=== PATIENT | male | born 1965 | race Hispanic/Latino ===

== ENCOUNTER 2018-05-24 12:00 | Inpatient (IN) | payer BC ==
[~2018-05-24] VITALS: Ht 179.1 cm; Wt 83.6 kg
[2018-05-24 10:21] LABS: BASOPHILS % (AUTO) 0.7 % (0.0-5.0); EOSINOPHILS % (AUTO) 1.2 % (0.0-8.0); HEMATOCRIT 44.2 % (42-54); LYMPHOCYTES % (AUTO) 23.4 % (21.0-51.0); MEAN CORPUSCULAR HGB CONC 34.1 g/dL (32.0-36.0); MEAN CORPUSCULAR VOLUME 85.2 fL (79-99); MONOCYTES % (AUTO) 5.8 % (3.0-13.0); NEUTROPHILS % (AUTO) 68.9 % (40.0-77.0); NUCLEATED RED BLOOD CELLS 0.1 % (0.0-0.19); PLATELET COUNT (AUTO) 274 K/uL (130-400); RED BLOOD CELL COUNT(AUTO) 5.18 MIL/uL (4.50-6.20); RED CELL DISTRIBUTION WIDTH 13.2 % (11.0-15.5); WHITE BLOOD COUNT (AUTO) 5.9 K/uL (4.8-10.8)
[2018-05-24 10:39] VITALS: BP 137/79
[2018-05-24 10:51] LABS: POTASSIUM 4.9 mmol/L (3.5-5.1)
[~2018-05-24 12:00] MED LIST: ALPR0.255 PO; AMLO5TAB7 PO; EZET1TAB63 PO; [UNRECOGNIZED DRUG - OTHER] PO
[2018-05-26] VITALS (24 sets, daily range): BP systolic 122–154; BP diastolic 64–91
[2018-05-26] MEDS: CLINDAMYCIN 900 MG/D5% WATER 50 ML IV SCH ×6 (06:00→21:43)
[2018-05-26] MEDS ORDERED: LACTATED RINGERS 1000ML 1,000 ML IV ONE (06:43)
[2018-05-26] MEDS ORDERED: BACITRACIN 50,000 UNIT VIAL ONE (06:49)
[2018-05-26] MEDS ORDERED: BUPIVACAINE/EPI/PF 0.25% 50 ML VIAL ONE (06:49)
[2018-05-26] MEDS ORDERED: THROMBIN-JMI 20000 UNIT KIT TP ONE (06:50)
[2018-05-26] MEDS ORDERED: MIDAZOLAM HCL 1 MG/ML 2ML VIAL ONE ×2 (07:00→07:22)
[2018-05-26] MEDS ORDERED: PROPOFOL 10 MG/ML 20ML VIAL IV ONE (07:00)
[2018-05-26] MEDS ORDERED: FENTANYL CITRATE PF 50 MCG/1 ML 2ML VIAL ONE ×2 (07:02→08:11)
[2018-05-26] MEDS ORDERED: GLYCOPYRROLATE 1 MG/5 ML SYRINGE ONE (07:05)
[2018-05-26] MEDS ORDERED: PHENYLEPHRINE HCL 10 MG/ML 1ML VIAL IV ONE (07:05)
[2018-05-26] MEDS ORDERED: NEOSTIGMINE 5MG/5ML SYR IV ONE (07:05)
[2018-05-26] MEDS ORDERED: MIDAZOLAM HCL 1 MG/ML 2ML VIAL IVPB SCH (08:30)
[2018-05-26] MEDS ORDERED: SODIUM CHLORIDE 0.9% 10 ML VIAL IVP PRN (11:00)
[2018-05-26] MEDS ORDERED: HYDROCODONE/ACETAMINOPHEN 5/325 MG TAB PO PRN (11:00)
[2018-05-26] MEDS: DEXAMETHASONE SOD PHOSPHATE 4 MG/ML 1ML VIAL IVP SCH ×3 (11:00→23:18)
[2018-05-26] MEDS ORDERED: MORPHINE SULFATE 2 MG/ML 1ML SYG IVP PRN (11:00)
[2018-05-26] MEDS ORDERED: PROMETHAZINE HCL 25 MG/ML 1ML AMPULE IM PRN (11:00)
[2018-05-26] MEDS: LACTATED RINGERS 1000ML 1,000 ML IV SCH (12:30)
[2018-05-26] MEDS ORDERED: SIMVASTATIN 10 MG TABLET PO SCH (21:00)
[2018-05-26] MEDS ORDERED: EZETIMIBE 10 MG TAB PO SCH (21:00)
[2018-05-26] MEDS: ALPRAZOLAM 0.25 MG TABLET PO SCH (21:54)
[2018-05-26] MEDS: AMLODIPINE BESYLATE 5 MG TAB PO SCH (21:55)
[2018-05-26] MEDS ORDERED: SIMVASTATIN 20 MG TABLET ONE (23:15)
[2018-05-27] MEDS: LACTATED RINGERS 1000ML 1,000 ML IV SCH (00:14)
[2018-05-27 04:37] VITALS: BP 123/68
[2018-05-27] MEDS: DEXAMETHASONE SOD PHOSPHATE 4 MG/ML 1ML VIAL IVP SCH (05:27)
[2018-05-27 07:57] VITALS: BP 136/86
[2018-05-27] MEDS: ALPRAZOLAM 0.25 MG TABLET PO SCH (09:00)
[2018-05-27] MEDS ORDERED: PANTOPRAZOLE SODIUM 40 MG TABLET.DR PO SCH (09:00)
[2018-05-27] MEDS: AMLODIPINE BESYLATE 5 MG TAB PO SCH (09:16)
[2018-05-27] MEDS ORDERED: EZETIMIBE 10 MG TAB PO SCH (21:00)
[2018-05-27] MEDS ORDERED: SIMVASTATIN 10 MG TABLET PO SCH (21:00)
== END 2018-05-27 11:40 | disposition home or self-care (01) | DRG 30 ==
LOC: EDSTATUS 12:00 → DAHIP 05-26 05:52 → 4BH 05-26 11:55
PROVIDERS: ADMIT Neurological Surgery; ATTEND Neurological Surgery
PROC: 0RG10K0 Fusion of Cervical Vertebral Joint with Nonautologous Tissue Substitute, Anterior Approach, Anterior Column, Open Approach (ICD-10-PCS; principal; 2018-05-26 08:45)
PROC: 4A11X4G Monitoring of Peripheral Nervous Electrical Activity, Intraoperative, External Approach (ICD-10-PCS; 2018-05-26 08:45)
PROC: BR111ZZ Fluoroscopy of Cervical Disc(s) using Low Osmolar Contrast (ICD-10-PCS; 2018-05-26 08:45)
DX: M54.12 Radiculopathy, cervical region (principal); M25.78 Osteophyte, vertebrae; I10 Essential (primary) hypertension; F41.9 Anxiety disorder, unspecified; K21.9 Gastro-esophageal reflux disease without esophagitis; Z88.5 Allergy status to narcotic agent; Z88.0 Allergy status to penicillin; Z88.8 Allergy status to other drugs, medicaments and biological substances
CPT/HCPCS: 36415; 72020; 80051; 85025; 96374; A4344; J1100; J2250; J2370; J2704; J2710; J3010; J3490; J7030; J7120

== ENCOUNTER → 2018-06-28 | Outpatient (CLI) | payer BC ==
[~2018-06-28] MED LIST changes: -AMLO5TAB7 PO; +AMLO5TAB9 PO
== END | disposition home or self-care (01) ==
LOC: OIH 09:31
PROVIDERS: ATTEND Neurological Surgery
DX: M43.22 Fusion of spine, cervical region (principal); M47.812 Spondylosis without myelopathy or radiculopathy, cervical region; Z98.1 Arthrodesis status
CPT/HCPCS: 72040